=== PATIENT | male | born 1990 | race Caucasian/White ===

== ENCOUNTER 2018-10-08 15:40 | Emergency (ER) | payer MEDICAID ==
[~2018-10-08] VITALS: Ht 182.9 cm; Wt 81.8 kg
[2018-10-08 15:45] VITALS: Ht 182.9 cm; Wt 81.8 kg
[2018-10-08 16:01] LABS: APPEARANCE CLEAR (CLEAR); COLOR YELLOW (YELLOW); GLUCOSE NEGATIVE (NEGATIVE); KETONE NEGATIVE (NEGATIVE); NITRITE NEGATIVE (NEGATIVE); PROTEIN NEGATIVE (NEGATIVE); SPECIFIC GRAVITY 1.025 (1.005-1.020); UROBILINOGEN NORMAL (NORMAL)
[2018-10-08 16:01] LABS: BASOPHILS 0.3 % (0-2); EOSINOPHILS 4.5 % (0-7); HEMATOCRIT 41.3 % (42.0-54.0); HEMOGLOBIN 14.6 g/dL (13.5-17.5); IMMATURE GRANULOCYTES 0.2 % (0-5); MCHC 35.4 g/dL (31.0-37.0); MCV 84.8 fL (80.0-100.0); MEAN PLATELET VOLUME 10.8 fL (7.4-10.4); MONOCYTES 9.2 % (2-11); NEUTROPHILS 43.8 % (40-80); PLATELET COUNT 183 10x3/uL (130-400); RBC 4.87 10x6/uL (4.20-6.10); WBC 6.2 10x3/uL (4.8-10.8)
[2018-10-08 16:02] LABS: BILIRUBIN NEGATIVE (NEGATIVE)
[2018-10-08 16:03] LABS: BACTERIA FEW /hpf (NONE SEEN); RED CELLS - URINE 0-5 /hpf (0-5); SPERMATOZOA 0-5 /hpf (NONE SEEN); WHITE CELLS - URINE RARE /hpf (0-5)
[2018-10-08 16:17] LABS: ALBUMIN 3.9 g/dL (3.4-5.0); ALKALINE PHOSPHATASE 93 U/L (46-116); ALT (SGPT) 21 U/L (10-68); BILIRUBIN - TOTAL 0.44 mg/dL (0.2-1.3); CALC OSMOLALITY 276 mosm/kg (275-300); CALCIUM 8.7 mg/dL (8.5-10.1); CARBON DIOXIDE 28.8 mmol/L (21.0-32.0); CHLORIDE - SERUM 104 mmol/L (98-107); CREATININE - SERUM 1.2 mg/dL (0.6-1.3); GLUCOSE 96 mg/dL (74-106); PROTEIN - SERUM 7.5 g/dL (6.4-8.2); SODIUM 138 mmol/L (136-145); UREA NITROGEN 14 mg/dL (7-18); eGFR NON AFRICAN AMERICAN 77 mL/min (90-120)
[2018-10-08] MEDS ORDERED: PROTONIX40 MG PO (17:41)
[2018-10-08] MEDS ORDERED: ANUSOL-HC25 MG RC (17:41)
[2018-10-08 17:51] VITALS: BP 140/76
== END 2018-10-08 17:52 | disposition home or self-care (01) ==
LOC: D.ER 15:40
PROVIDERS: Emergency Medicine
DX: R10.9 Unspecified abdominal pain (principal); K92.1 Melena